=== PATIENT | male | born 1955 | race Caucasian/White ===

== ENCOUNTER 2017-04-11 17:57 | Emergency (ER) | payer OTHER ==
[~2017-04-11] VITALS: Ht 162.6 cm; Wt 84.0 kg
[2017-04-11] MEDS ORDERED: LISI40TA4 PO (18:03)
[2017-04-11] MEDS ORDERED: METF500T4 PO (18:03)
[2017-04-11] MEDS ORDERED: AMLODIPINE 2.5MG TABLET PO ONE (18:45)
[2017-04-11 19:35] VITALS: BP 169/92
== END 2017-04-11 19:40 | disposition home or self-care (01) ==
LOC: ER 18:23
DX: I10 Essential (primary) hypertension (principal); K21.9 Gastro-esophageal reflux disease without esophagitis; E66.9 Obesity, unspecified; E11.9 Type 2 diabetes mellitus without complications
CPT/HCPCS: 99283; Z7610